=== PATIENT | female | born 1985 | race Asian ===

== ENCOUNTER 2017-03-09 20:45 | Emergency (ER) | payer OTHER ==
[~2017-03-09] VITALS: Ht 152.4 cm; Wt 52.2 kg
[2017-03-09 21:07] VITALS: BP 123/73
--- NOTE | 2017-03-09 21:07 | Emergency Room Report ---
History of Present Illness General Chief Complaint: Upper Extremity Injury Source: Patient Present Illness HPI Is a 31-year-old female with no past medical history. She is on right-hand dominant. She works here. She was doing a dressing change and afterward was removing a White when she tried rib pullback dorsally her left thumb bent back. This occurred around 4 PM. Still some mild pain at the base of the thumb. No swelling. No fever chills but no nausea no vomiting. No other injury. Sent down here to be evaluated Allergies: Coded Allergies: No Known Allergies (Unverified , 03/09/17) Patient History Past Medical History: see triage record, old chart reviewed Past Surgical History: none Pertinent Family History: none Social History: Denies: smoking Last Menstrual Period: 03/09/17 Now: No Immunizations: other Reviewed Nursing Documentation: PMH: Agreed, PSxH: Agreed Nursing Documentation-PMH Past Medical History: No Stated History Review of Systems Eye: Denies: blurred vision, eye pain ENT: Denies: ear pain, nose congestion, throat swelling Respiratory: Denies: cough, shortness of breath Cardiovascular: Denies: chest pain, palpitations Gastrointestinal: Denies: abdominal pain, diarrhea, nausea, vomiting Musculoskeletal: Reports: joint pain, Denies: back pain Skin: Denies: rash Neurological: Denies: headache, numbness Endocrine: Denies: increased thirst, increased urine Hematologic/Lymphatic: Denies: easy bruising All Other Systems: negative except mentioned in HPI Physical Exam Vital Signs Date Time Temp Pulse Resp B/P Pulse Ox O2 Delivery O2 Flow Rate FiO2 03/09/17 20:57 98.4 74 16 123/73 100 Room Air vitals normal Sp02 EP Interpretation: reviewed, normal General Appearance: well appearing, no apparent distress, alert Head: normocephalic, atraumatic Eyes: bilateral eye EOMI, bilateral eye PERRL ENT: hearing grossly normal, normal pharynx Neck: full range of motion, supple, no meningismus Respiratory: chest non-tender, lungs clear, normal breath sounds Cardiovascular #1: regular rate, rhythm, no murmur Gastrointestinal: normal bowel sounds, non tender, no mass, no organomegaly, no bruit, non-distended Musculoskeletal: back normal, gait/station normal, normal range of motion, other - Minimal tenderness at the base of the left thumb. Full range of motion. No laxity of the joint. Sensation normal. Psychiatric: mood/affect normal Skin: warm/dry Medical Decision Making Diagnostic Impression: Primary Impression: Left thumb sprain Qualified Codes: S63.642A - Sprain of metacarpophalangeal joint of left thumb , initial encounter ER Course patient with a mild thumb sprain. No need for x-ray. No evidence of fracture. We'll discharge home. Last Vital Signs Date Time Temp Pulse Resp B/P Pulse Ox O2 Delivery O2 Flow Rate FiO2 03/09/17 20:57 98.4 74 16 123/73 100 Room Air Status: unchanged Disposition: HOME, SELF-CARE Condition: Stable Additional Instructions: followup with employee health as needed. Return it worse. BRANDON MARX M.D. Mar 09, 2017 21:07
[2017-03-09 21:12] VITALS: BP 123/73
== END 2017-03-09 21:12 | disposition home or self-care (01) ==
LOC: EMR 21:05
DX: S63.601A Unspecified sprain of right thumb, initial encounter (principal); X50.9XXA Other and unspecified overexertion or strenuous movements or postures, initial encounter; Y93.F9 Activity, other caregiving; Y92.238 Other place in hospital as the place of occurrence of the external cause; Y99.0 Civilian activity done for income or pay
CPT/HCPCS: 99282